=== PATIENT | male | born 1965 | race Caucasian/White ===

== ENCOUNTER 2022-05-17 06:33 | Day surgery (SDC) | payer BC, SELFPAY ==
[2022-05-17] VITALS (7 sets, daily range): BP systolic 133–162; BP diastolic 75–85; PULSE 70–79; RESP 15–16; TEMP 36.4–36.9; O2SAT 97–99
[2022-05-17] MEDS: BUPIVACAINE 0.5% 30 ML INJECTION (06:55)
--- NOTE | 2022-05-17 07:07 | SUR.PREOP ---
SAME DAY SURGERY LOCAL INJECTION SITE VERIFICATION WAS PERFORMED BY SURGEON/PA AND PATIENT PRIOR TO LOCAL ANESTHETIC BEING INJECTED TO OPERATIVE SITE.
--- NOTE | 2022-05-17 07:39 | P.ORPRC_ITS ---
Procedure Note Date of procedure: 05/17/22 Procedure: PREOPERATIVE DIAGNOSIS: 1. Left small finger flexor tenosynovitis - trigger finger POSTOPERATIVE DIAGNOSIS: 1. Left small finger flexor tenosynovitis - trigger finger PROCEDURE: 1. Left small finger flexor tendon sheath open release (A1 isiah) SURGEON: Kip Barron MD. ENGINEERING LECTURER: ODILON Duffy ANESTHESIA: Local anesthetic 4ml via 50:50 mixture of 1% Lidocaine with epi and 0.5% marcaine plain EBL: 2ml IMPLANTS: None TOURNIQUET: None COMPLICATIONS: None evident INDICATIONS: The patient is a pleasant 57-year-old male who has experienced left small finger catching/triggering for number of months. It has progressively gotten worse. Given the failure of nonoperative management, and how this affects daily life, surgery was recommended. DESCRIPTION OF PROCEDURE: Following a thorough discussion of risks, benefits, and alternatives consent was obtained and the operative digit(s) was marked. The patient was brought to the operating room and placed supine on the operating table. Local anesthesia induction was undertaken in preop holding. No antibiotics were administered as this was planned to be a local case only. Proper time-out was performed identifying proper patient, site, and procedure. The operative extremity was prepped and draped in the appropriate sterile fashion using ChloraPrep. A incision was made on the palmar surface of the hand overlying the MCP joint region of the appropriate digit(s) respecting the palmar creases being cautious not to cross these perpendicularly. Sharp incision through the skin, and blunt dissection through subcutaneous tissue allowing protection of crossing neurologic structures. The A1 isiah was visualized directly. It was incised sharply with a 15 blade. It was released completely from its distal to proximal extent under direct visualization. The tendon was inspected and found to be mildly striated consistent with some friction. Otherwise, it was intact. The tendon was removed out of the wound, and further inspected. The patient was asked to manually flex and extend the digits and showed no further catching. The catching which was visualized after tourniquet inflation, was no longer evident with reproduction of a manual fist and relaxation. Closure was performed with 4-O nylon in interrupted fashion. Soft dressings were applied, and the patient was transferred to the recovery room in stable condition. PLAN: 1. Encourage elevation of the operative extremity. 2. Range of motion and icing of the fingers and hand/wrist as tolerated/needed. 3. Ibuprofen/acetaminophen and/or Percocet as needed for pain control. 4. Follow up with PA visit in 12-16 days for wound check and suture removal.
== END 2022-05-17 07:56 | disposition home or self-care (01) ==
PROVIDERS: PCP Family Medicine; Visit Provider Orthopaedic Surgery Sports Medicine
PROC: (CPT 26055; principal; 2022-05-17 07:30)
DX: M65.352 Trigger finger, left little finger (principal); M65.842 Other synovitis and tenosynovitis, left hand
CPT/HCPCS: 26055; J3490